=== PATIENT | female | born 2005 ===

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

== ENCOUNTER 2023-06-22 09:23 | Outpatient (AMB) | payer OTHER, SELFPAY ==
[2023-06-22 09:26] VITALS: BP 118/86; PULSE 84; O2SAT 97; BMI 24.1
--- NOTE | 2023-06-22 09:26 | A.OFFPC_ITS ---
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: No Accompanied by: Self / Same As Patient Allergies No Known Allergies Allergy (Verified 06/22/23 09:50) Medication List - Last Reconciled 06/22/23 by LOREN Norwood hydroxyzine HCl 25-50 mg (1 or 2 tabs) PO every 6 to 8 hours PRN; ibuprofen 600 mg PO Q8H PRN levonorgestrel-ethinyl estrad 0.1-20 mg-mcg (Sronyx) 1 tab PO DAILY Tobacco use date assessed: 06/22/23 Dental Screening Dental Screen Date: 06/22/23 Did you have a dental visit in the last 12 months?: Yes Did you have a dental problem in the last 6 months where you did not have access to dental care?: No Was dental information given to patient?: Patient has dentist HPI HPI Comments History of Present Illness Details 17-year-old female new patient past medi ranjana history significant for migraines. Patient presents today for physical exam. Recommended routine eye exam. Flu shot given in office today. Patient requesting form completed for school as she has anxiety related to test aching states that she gets very nervous feeling and starts to shake and it will give her migraine making it very difficult to focus on her test. Form completed [place] test anxiety to allow student more time while taking her exams. 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 History of irregular menses however patient reports since on control treatment patient's periods are regular. Patient states sexually active with long-term boyfriend of 4 years, uses condoms. [facility] Medical History (Updated 06/22/23 @ 10:03 by LOREN Norwood) Irregular menses Dysmenorrhea Surgical History No pertinent past surgical history Family History Mother Hypertension Paternal Grandfather AA (alcohol abuse) High cholesterol Father AA (alcohol abuse) Depression Anxiety Asthma Bipolar 1 disorder Sister Anxiety Depression Social History (Updated 06/22/23 @ 09:52 by LOREN Norwood) Household Members: Family Both parents involved: Yes Housing: House Alcohol intake: never Patient Tobacco Use Status: Never used Tobacco e-Cigarette/Vaping Use: Never Used service: No Current occupational status: unemployed Cognitive needs: No Hearing needs: No Vision needs: Yes Questionnaire PHQ-9 Over the last 2 weeks, how often have you been bothered by any of the following problems? 1. Little interest or pleasure in doing things: not at all 2. Feeling down, depressed, or hopeless: not at all 3. Trouble falling or staying asleep, or sleeping too much: several days 4. Feeling tired or having little energy: several days 5. Poor appetite or overeating: not at all 6. Feeling bad about yourself - or that you are a failure or have let yourself or your family down: not at all 7. Trouble concentrating on things, such as reading the newspaper or watching television: not at all 8. Moving or speaking so slowly that other people could have noticed. Or the opposite - being so fidgety or restless that you have been moving around a lot more than usual: not at all 9. Thoughts that you would be better off or of hurting yourself in some way: not at all Total score: 2 Depression Screening Interpretation: Negative Depression Screening Done: Yes 18378 - PHQ-9 Billing: Yes Source: Developed by Drs. Chemo Louis, Farrah Dickens, Germán Mendoza and colleagues, with an educational arley from [employer]. Thrive Questionnaire Date Thrive assessed: 06/22/23 I am a: Patient What is your living situation today?: I have a steady place to live Within the past 12 months, did the food you bought not last and you didn't have the money to get more?: Never true Within the past 12 months, did you worry whether your food would run out before you got money to buy more?: Never true Do you have trouble paying for medicines?: No Do you have trouble getting transportation to medical appointments?: No Do you have trouble paying your heating and electricity bill?: No Do you have trouble taking care of your child, family member or friend?: No Do you have trouble with day-to-day activities such as bathing, preparing meals, shopping, managing finances, etc.?: No Are you currently unemployed and looking for a job?: No Are you interested in more education?: No Please select the resources that you would like help with: None Currently or been in a relationship where the following occur: no concerns reported AUDIT C Alcohol Use Questionnaire (AUDIT-C) 1. How often do you have a drink containing alcohol?: Never 3. How often do you have six or more drinks on one occasion?: Never Total Score: 0 LASHAUN-7 AMB Questionnaire LASHAUN-7 Date LASHAUN - 7 assessed: 06/22/23 Feeling nervous, anxious, or on edge: 0 = Not at all Not being able to stop or control worryin = Not at all Worrying too much about different things: 0 = Not at all Trouble relaxin = Not at all Being so restless that it is hard to sit still: 0 = Not at all Becoming easily annoyed or irritable: 0 = Not at all Feeling afraid as if something awful might happen: 0 = Not at all Total LASHAUN-7 score (0-4 normal; 5-9 mild; 10-14 moderate; 15-21 severe): 0 Source: Developed by Drs. Chemo Louis, Farrah Dickens, Germán Mendoza and colleagues, with an educational arley from [employer]. LASHAUN-7 Assessment Billing LASHAUN-7 Assessment Tool: LASHAUN-7 Assessment 32332 Review of Systems Const Denies chills, Denies fatigue, Denies fever(s) and Denies poor appetite Eyes Denies no additional complaints ENT Reports Normal hearing present Card Denies chest pain, Denies syncope, Denies rapid heart rate and Denies dyspnea Resp Denies cough and Denies dyspnea GI Denies change in stool character, Denies constipation, Denies diarrhea, Denies nausea and Denies vomiting Denies urinary frequency, Denies dysuria and Denies urinary urgency Neuro Reports Normal hearing present, Denies confusion and Denies syncope Psych Denies confusion Endo Denies fatigue Physical exam (Primary Care) Vital Signs: Last Vital Signs Pulse 84 06/22/23 09:26 BP 118/86 06/22/23 09:26 Pulse Ox 97 06/22/23 09:26 Oxygen Delivery Method Room Air 06/22/23 09:26 BMI result Body Mass Index 24.1 Tobacco/Smoking Status: Tobacco use Status Tobacco use date assessed 06/22/23 06/22/23 09:37 Patient Tobacco Use Status Never used Tobacco 06/22/23 09:52 e-Cigarette/Vaping Use Never Used 06/22/23 09:52 PHQ-9: PHQ-9 Score PHQ-9: Total score 2 06/22/23 09:54 Depression Screening Interpretation: Negative Thrive Assessment: Date of Thrive Assessment Date Thrive assessed 06/22/23 06/22/23 09:37 Currently or been in a relationship where the following occur: no concerns reported Const General: No confusion Orientation/consciousness: No confusion HENMT Head: Yes normocephalic and Yes atraumatic Ears: external ears normal and TM's normal bilaterally General nose exam: Normal external nose present and Normal nasal mucous membranes and turbinates present Face and sinus: Yes normal facial exam and Yes sinuses nontender Mouth: moist mucous membranes Throat: Yes tonsils normal Eyes Conjunctivae: conjunctivae normal Sclerae: sclerae normal Pupils: Equal, round and reactive pupils present and Pupils normal by confrontation EOM: EOMs intact bilaterally Direct Ophthalmoscopy: normal light reflex Neck Neck: Yes no lymphadenopathy and Yes supple Thyroid: Thyroid normal Chest Chest palpation & inspection: normal inspection of the chest Resp Effort & Inspection: normal respiratory effort Auscultation: clear to auscultation bilaterally, no crackles, no rhonchi and no wheezes Cardio Rate: regular rate Rhythm: regular rhythm Peripheral pulses: radial pulses present and dorsalis pedis present GI Inspection: Yes normal to inspection Palpation (GI): Soft to palpation, nontender and No hepatosplenomegaly present Auscultation: normoactive bowel sounds Skin General skin exam: no rashes or lesions noted Neuro General: No confusion Cranial nerves: Yes Equal, round and reactive pupils present and Yes Normal hearing present Cognition (Neuro): normal cognition Gait exam (Neuro): Normal gait present Motor exam (neuro): 5/5 motor strength present throughout Deep tendon reflexes (DTR's): Right brachioradialis reflex intensity grade: 2+, Left brachioradialis reflex intensity grade: 2+, Right patellar reflex intensity grade: 2+ and Left patellar reflex intensity grade: 2+ Extrem General: No edema Office Procedures Flu Questionnaire Does the patient have a severe egg allergy?: No Does the patient have severe life threatening allergies?: No Does the patient have a fever or illness today?: No Has the patient ever had Guillain-Delmar Syndrome?: No Has the patient ever had any past reaction to a flu shot?: No Immunizations flu vacc [id number] 6mos up(PF) 60 mcg(15 mcgx4)/0.5 mL IM syringe Performing Provider: LOREN Norwood [facility] Administered by: Devorah Robbins CMA on 06/22/23 09:40 Dose Route Admin Location Dispensed Lot Number Expiration Date NDC Risk Lead 0.5 mL IM Left Deltoid 0.5 mL [id number] 01/14/24 33145-113-21 Funding Profiles VIS Given Date VIS Provided VIS Publication Date 06/22/23 Single Vaccine 21 Eligibility Eligibility Date Funding Source Not [facility] Eligible 06/22/23 Private Assessment and Plan Assessment & Plan (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 Copy to be scanned into patient's chart, original handed to patient in office today. (2) Migraines: Code(s): G43.909 - Migraine, unspecified, not intractable, without status migrainosus Plan: Continue on ibuprofen as needed. Please take medication with food to prevent GI upset. (3) Physical exam, annual: Code(s): Z00.00 - Encounter for general adult medical examination without abnormal findings Plan: Follow-up in 1 year for physical exam or sooner if needed. Plan Follow up in 1 year Orders: Orders Influenza [id number] Immunization Today Z23 - Encounter for immunization Coding Level of Care Code New Pt Prev Care 18-39yr(82804 Diagnoses Test anxiety F41.8 Migraines G43.909 Physical exam, annual Z00.00 Additional Codes LASHAUN-7 Assessment Billing - LASHAUN-7 Assessment Tool: LASHAUN-7 Assessment 21844 ([id number])
== END 2023-06-22 10:10 | disposition home or self-care (01) ==
PROVIDERS: Visit Provider Nurse Practitioner Family
DX: Z23 Encounter for immunization (principal); Z00.00 Encounter for general adult medical examination without abnormal findings; F41.8 Other specified anxiety disorders; G43.909 Migraine, unspecified, not intractable, without status migrainosus
CPT/HCPCS: 90471; 90686; 99385

== ENCOUNTER 2023-08-07 12:43 | Outpatient (AMB) | payer OTHER, SELFPAY ==
--- NOTE | 2023-08-07 12:56 | AM.OFFWIN_ITS ---
Intake Vital Signs 08/07/23 12:59 Height 5 ft 3.68 in Weight 139 lb BMI 24.1 BP 116/72 Blood Pressure Location Lt brachial Position Sitting Pulse 82 Pulse Source Pulse Oximeter Temp 98.2 F Temp Source Oral Pulse Oximetry (%) 98 Oxygen Delivery Method Room Air Intake Visit Reasons: EP ?UTI Intake Note: pt is here for c.o possible uti Patient Tobacco Use Status: Never used Tobacco Allergies No Known Allergies Allergy (Verified 08/07/23 14:19) Medication List - Last Reconciled 08/07/23 by Silas Sorto MD ibuprofen 600 mg PO Q8H PRN levonorgestrel-ethinyl estrad 0.1-20 mg-mcg (Sronyx) 1 tab PO DAILY Do you need a note to return to daycare/school/sports/work: Yes HPI EP ?UTI HPI Details Patient presents for a sick visit. Reports symptoms of increased frequency of urination, burning on urination and discomfort in the suprapubic area. Symptoms started in the past few days. No fevers or chills. No nausea or vomiting. [facility] Medical History (Updated 06/22/23 @ 10:03 by LOREN Norwood) Irregular menses Dysmenorrhea Surgical History No pertinent past surgical history Family History Mother Hypertension Paternal Grandfather AA (alcohol abuse) High cholesterol Father AA (alcohol abuse) Depression Anxiety Asthma Bipolar 1 disorder Sister Anxiety Depression Social History (Updated 06/22/23 @ 09:52 by LOREN Norwood) Household Members: Family Both parents involved: Yes Housing: House Alcohol intake: never Patient Tobacco Use Status: Never used Tobacco e-Cigarette/Vaping Use: Never Used service: No Current occupational status: unemployed Cognitive needs: No Hearing needs: No Vision needs: Yes Physical Exam Vital Signs: Last Vital Signs Temp 98.2 F 08/07/23 12:59 Pulse 82 08/07/23 12:59 BP 116/72 08/07/23 12:59 Pulse Ox 98 08/07/23 12:59 Oxygen Delivery Method Room Air 08/07/23 12:59 BMI result Body Mass Index 24.1 General: Yes bladder normal to palpation and Yes no CVA tenderness Bimanual exam- vagina & uterus: bladder normal to palpation Back/Spine/Pelvis Back: no CVA tenderness Results AMB Urinalysis, Automated UA Leukoctes 500 Terrence/uL Last Edit by Kermit Foss CMA on 08/07/23 13:0 7 UA Nitrite Positive Last Edit by Kermit Foss CMA on 08/07/23 13:07 UA Urobilinogen 8 mg/dL Last Edit by Kermit Foss CMA on 08/07/23 13:0 7 UA Protein 15 mg/dL Last Edit by Kermit Foss CMA on 08/07/23 13:07 UA pH 5.0 Last Edit by Kermit Foss CMA on 08/07/23 13:07 UA Blood 25 Candelario/uL Last Edit by Kermit Foss CMA on 08/07/23 13:07 UA Specific [place] 1.015 Last Edit by Kermit Foss CMA on 08/07/23 13:07 UA Ketone Positive Last Edit by Kermit Foss CMA on 08/07/23 13:07 UA Bilirubin 4 mg/dL Last Edit by Kermit Foss CMA on 08/07/23 13:07 UA Glucose 250 mg/dL Last Edit by Kermit Foss CMA on 08/07/23 13:07 AMB Random Glucose (hemocue) AMB Random Glucose (hemocue) 112 mg/dL Last Edit by Kermit Foss CMA o n 08/07/23 13:55 Results Reviewed Results Reviewed: Laboratory Last Values Random Glu (Clinic) 112 mg/dL 08/07/23 13:50 Urine pH (Auto) 5.0 08/07/23 13:06 Specific [place] (Auto) 1.015 08/07/23 13:06 Urine Protein (Auto) 15 mg/dL 08/07/23 13:06 Glucose (UA)(Auto) 250 mg/dL 08/07/23 13:06 Urine Ketones (Auto) Positive 08/07/23 13:06 Urine Blood (Auto) 25 Candelario/uL 08/07/23 13:06 Urine Nitrite (Auto) Positive 08/07/23 13:06 Urine Bilirubin (Auto) 4 mg/dL 08/07/23 13:06 Urine Urobilinogen (Auto) 8 mg/dL 08/07/23 13:06 Leukocyte Esterase (Auto) 500 Terrence/uL 08/07/23 13:06 Assessment & Plan Assessment & Plan (1) Urinary tract infection: Code(s): N39.0 - Urinary tract infection, site not specified Plan: Urinalysis was positive for infection and sugar. Random blood sugars done in the office was 112. Take antibiotics and Pyridium as directed. Increase fluid intake. If symptoms of burning persist, new onset of fever or lower back pain, to follow-up at the clinic. Orders: Orders AMB Random Glucose (hemocue) Today Z13.9 - Encounter for screening, unspecified AMB Urinalysis Automated Today Z13.9 - Encounter for screening, unspecified Coding Level of Care Code Est Pt Level 3 (85441) Diagnoses Urinary tract infection N39.0
[2023-08-07 12:59] VITALS: BP 116/72; PULSE 82; TEMP 36.8; O2SAT 98; BMI 24.1
== END 2023-08-07 14:40 | disposition home or self-care (01) ==
PROVIDERS: Visit Provider Internal Medicine
DX: N39.0 Urinary tract infection, site not specified (principal); R35.0 Frequency of micturition
CPT/HCPCS: 81003; 82948; 99213

== ENCOUNTER 2023-09-15 10:02 | Outpatient (REF) | payer OTHER, SELFPAY ==
[2023-09-15 11:31] LABS: HBS Num1 323.98 mIU/mL (0-7.99); HBsAGNum1 0.34 S/CO (0.00-0.99); Hepatitis B Core Antibody Nonreactive (Nonreactive); Hepatitis B Surface Antigen Negative (Negative); ~Hepatitis B Surface Antibody REACTIVE (Nonreactive)
== END 2023-09-15 10:03 | disposition home or self-care (01) ==
LOC: HO.LAB 10:02
PROVIDERS: PCP Internal Medicine; Visit Provider Internal Medicine
DX: Z01.84 Encounter for antibody response examination (principal)
CPT/HCPCS: 36415; 86704; 86706; 87340

== ENCOUNTER 2024-02-01 10:33 | Outpatient (REF) | payer OTHER, SELFPAY ==
[2024-02-04 02:48] LABS: TS Negative Control Passed; TS Panel A 0; TS Panel B 0; TS Positive Control Passed; TSpotTB Negative (Negative)
== END 2024-02-01 10:34 | disposition home or self-care (01) ==
LOC: HO.LAB 10:33
PROVIDERS: PCP Internal Medicine; Visit Provider Internal Medicine
DX: Z23 Encounter for immunization (principal)
CPT/HCPCS: 36415; 86481

== ENCOUNTER 2024-06-24 08:52 | Outpatient (AMB) | payer OTHER, SELFPAY ==
[2024-06-24 09:05] VITALS: BP 122/76; BMI 26.9
--- NOTE | 2024-06-24 09:05 | MHC.PC.OV ---
Vital Signs 06/24/24 09:05 Height 5 ft 3.68 in Weight 155 lb BMI 26.9 BP 122/76 Blood Pressure Location Lt brachial Position Sitting Intake Visit Reasons: PE- NEEDS PHQ9 Intake Note: Patient here for a physical exam Flow Floor Attendant Required: No Accompanied by: Self / Same As Patient Allergies No Known Allergies Allergy (Verified 06/24/24 09:30) Medication List - Last Reconciled 06/24/24 by Karen Mcneil MD levonorgestrel-ethinyl estrad 0.1-20 mg-mcg (Vienva) 1 tab PO DAILY naproxen 500 mg PO BID PRN 30 days Tobacco use date assessed: 06/24/24 Dental Screening Dental Screen Date: 06/24/24 Did you have a dental visit in the last 12 months?: No Did you have a dental problem in the last 6 months where you did not have access to dental care?: No Was dental information given to patient?: Patient has dentist HPI HPI Comments History of Present Illness Details The patient is a 18-year-old female presenting for an annual physical examination. 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 No specific prior medical interventions for depression have been mentioned. The patient is currently managing depression without medication. The patient also experiences anxiety, with reported episodes of shortness of breath, which she attributes to stress and fatigue. She considers consulting her physician about the anxiety and its potential impact on her health. No associated chest pain or wheezing has been reported. There is no history of surgeries. The patient denies any history of smoking or alcohol consumption. Her family history includes essential hypertension in her mother and bipolar disorder, asthma, anxiety, and depression in her father. The patient has not undergone any recent blood work, and there is a plan to perform a baseline evaluation to assess cholesterol, glucose, kidney, and liver function. - Annual physical examination conducted. - Pap smear deferred as patient is under the age of 21. - Influenza vaccine administered on March 19 in the community. - Routine vaccinations up to date. COUNT INCLUDES THE [facility] Medical History Irregular menses Dysmenorrhea Surgical History No pertinent past surgical history Family History Mother Hypertension Paternal Grandfather AA (alcohol abuse) High cholesterol Father AA (alcohol abuse) Depression Anxiety Asthma Bipolar 1 disorder Sister Anxiety Depression Social History Household Members: Family Both parents involved: Yes Housing: House Alcohol intake: never Patient Tobacco Use Status: Never used Tobacco e-Cigarette/Vaping Use: Never Used Second Hand Smoke Exposure: No service: No Current occupational status: unemployed Cognitive needs: No Hearing needs: No Vision needs: Yes Questionnaire PHQ-9 Over the last 2 weeks, how often have you been bothered by any of the following problems? 1. Little interest or pleasure in doing things: several days 2. Feeling down, depressed, or hopeless: several days 3. Trouble falling or staying asleep, or sleeping too much: several days 4. Feeling tired or having little energy: several days 5. Poor appetite or overeating: several days 6. Feeling bad about yourself - or that you are a failure or have let yourself or your family down: not at all 7. Trouble concentrating on things, such as reading the newspaper or watching television: not at all 8. Moving or speaking so slowly that other people could have noticed. Or the opposite - being so fidgety or restless that you have been moving around a lot more than usual: not at all 9. Thoughts that you would be better off or of hurting yourself in some way: not at all Total score: 5 Depression Screening Interpretation: Positive Depression Screening Follow-up: Existing condition and Follow-up Visit Requested Depression Screening Done: Yes 17430 - PHQ-9 Billing: Yes Source: Developed by Drs. Chemo Louis, Farrah Dickens, Germán Mendoza and colleagues, with an educational arley from [employer]. Thrive Questionnaire Date Thrive assessed: 06/18/24 I am a: Patient What is your living situation today?: I have a steady place to live Within the past 12 months, did the food you bought not last and you didn't have the money to get more?: Sometimes True Within the past 12 months, did you worry whether your food would run out before you got money to buy more?: Sometimes True Do you have trouble paying for medicines?: No Do you have trouble getting transportation to medical appointments?: No Do you have trouble paying your heating and electricity bill?: No Do you have trouble taking care of your child, family member or friend?: No Do you have trouble with day-to-day activities such as bathing, preparing meals, shopping, managing finances, etc.?: No Are you currently unemployed and looking for a job?: No Are you interested in more education?: I choose not to answer this question Please select the resources that you would like help with: Food Currently or been in a relationship where the following occur: No concerns reported THRIVE Score: 2 AUDIT C Alcohol Use Questionnaire (AUDIT-C) 1. How often do you have a drink containing alcohol?: Never Total Score: 0 Score Reviewed/Action Taken: No LASHAUN-7 AMB Questionnaire LASHAUN-7 Date LASHAUN - 7 assessed: 06/24/24 Feeling nervous, anxious, or on edge: 2 = More than half the days Not being able to stop or control worryin = Several days Worrying too much about different things: 1 = Several days Trouble relaxin = Several days Being so restless that it is hard to sit still: 1 = Several days Becoming easily annoyed or irritable: 1 = Several days Feeling afraid as if something awful might happen: 0 = Not at all Total LASHAUN-7 score (0-4 normal; 5-9 mild; 10-14 moderate; 15-21 severe): 7 Source: Developed by Drs. Chemo Louis, Farrah Dickens, Germán Mendoza and colleagues, with an educational arley from [employer]. LASHAUN-7 Assessment Billing LASHAUN-7 Assessment Tool: LASHAUN-7 Assessment 44166 Review of Systems Const All systems reviewed & are unremarkable except as noted in HPI and below Card Denies chest pain at rest, Denies chest pain with activity, Denies edema, Denies irregular heart rhythm, Denies claudication, Denies dyspnea, Denies dyspnea on exertion, Denies orthopnea, Denies paroxysmal nocturnal dyspnea and Denies slow heart rate Resp Denies cough, Denies dyspnea and Denies dyspnea on exertion GI Denies abdominal pain, Denies change in bowel habits, Denies excessive flatus, Denies nausea and Denies vomiting Neuro Denies lack of coordination Physical exam (Primary Care) Vital Signs: Last Vital Signs BP 122/76 06/24/24 09:05 BMI result Body Mass Index 26.9 Tobacco/Smoking Status: Tobacco use Status Tobacco use date assessed 06/24/24 06/24/24 09:09 Patient Tobacco Use Status Never used Tobacco 06/24/24 09:09 e-Cigarette/Vaping Use Never Used 06/24/24 09:09 PHQ-9: PHQ-9 Score PHQ-9: Total score 5 06/24/24 09:32 Depression Screening Interpretation: Positive Depression Screening Follow-up: Existing condition and Follow-up Visit Requested Thrive Assessment: Date of Thrive Assessment Date Thrive assessed 06/18/24 06/24/24 09:09 Currently or been in a relationship where the following occur: No concerns reported HENMT Head: Yes normal to inspection, Yes normocephalic and Yes atraumatic Ears: external ears normal Eyes General: appearance normal, both eyes and all related structures Eyelids: Yes eyelids normal Conjunctivae: conjunctivae normal Neck Neck: Yes normal visual inspection and Yes supple Resp Effort & Inspection: normal respiratory effort Auscultation: clear to auscultation bilaterally Cardio Jugular venous distension: no JVD Rate: regular rate Rhythm: regular rhythm Heart sounds: S1 normal heart sound present and S2 normal heart sound present GI Inspection: Yes normal to inspection Palpation (GI): Soft to palpation and nontender Auscultation: normal bowel sounds Skin General skin exam: no rashes or lesions noted Neuro General: no focal motor deficits Extrem General: Yes full ROM Psych Appearance: grossly normal Coding Level of Care Code Est Pt Level 3 (76156) Est Pt Prev Care 18-39y(98258) Diagnoses Physical exam Z00.00 Fatigue R53.83 Mild major depression F32.0 Additional Codes LASHAUN-7 Assessment Billing - LASHAUN-7 Assessment Tool: LASHAUN-7 Assessment 22112 ([id number]) PHQ-9 - 03753 - PHQ-9 Billing: Yes ([id number]) Time Spent (min) 32 Assessment & Plan Assessment & Plan (1) Physical exam: Code(s): Z00.00 - Encounter for general adult medical examination without abnormal findings Category: Medical (2) Fatigue: Code(s): R53.83 - Other fatigue Category: Medical (3) Mild major depression: Code(s): F32.0 - Major depressive disorder, single episode, mild Category: Medical Plan 1. Anxiety: - Encourage patient to discuss anxiety and associated symptoms further if they persist. 2. Depressive Disorder, Mild: - No medication currently planned; support and counseling advised if symptoms worsen. 3. Health Maintenance: - Follow up on blood work results once completed. Patient was informed and verbally consented to the use of an ambient scribe for clinic note documentation during this visit. I discussed with the patient the importance of monitoring her depressive symptoms, especially in light of stress from nursing school and recent bereavement. I emphasized that she should reach out if symptoms persist or worsen. We talked about the potential impact of anxiety and how recent events might be contributing to her symptoms. I recommended blood work to establish a baseline for cholesterol, glucose, and kidney and liver function. I have ensured the patient's understanding of the deferred Pap smear until age 21. We also confirmed her routine vaccinations are current. Orders: Orders Vitamin D 25-OH Total Today R53.83 - Other fatigue Vitamin B12 and Folate Today R53.83 - Other fatigue Thyroid Stimulating Hormone Today R53.83 - Other fatigue Comprehensive [place]. Panel Fast Today R53.83 - Other fatigue Lipid Panel Today Z00.00 - Encounter for general adult medical examination without abnormal findings Complete Blood Count Auto Diff Today R53.83 - Other fatigue Patient Instructions: - Complete prescribed fasting blood work as scheduled. - Observe any changes in anxiety or depressive symptoms, and report if symptoms persist or worsen. - Follow up regarding any stress management or supportive counseling needs. - Await results of laboratory work and adhere to future follow-up recommendations.
== END 2024-06-24 09:40 | disposition home or self-care (01) ==
PROVIDERS: PCP Internal Medicine; Visit Provider Internal Medicine
DX: Z00.00 Encounter for general adult medical examination without abnormal findings (principal); R53.83 Other fatigue; F32.0 Major depressive disorder, single episode, mild

== ENCOUNTER → 2024-06-24 08:52 | Outpatient (BNVA) | payer OTHER, SELFPAY | PROVIDERS: PCP Internal Medicine; Visit Provider Internal Medicine | DX: Z00.00 Encounter for general adult medical examination without abnormal findings (principal); R53.83 Other fatigue; F32.0 Major depressive disorder, single episode, mild | CPT/HCPCS: 96127; 99395 ==

== ENCOUNTER 2024-12-31 09:08 | Outpatient (REF) | payer OTHER, SELFPAY ==
[2024-12-31 09:21] LABS: MANUAL DIFF FLAG NO
[2024-12-31 09:30] LABS: Basophils Percent Auto 0.5 % (0-2); Eosinophils Absolute Auto 0.2 X10*3/uL (0.0-0.4); Eosinophils Percent Auto 2.1 % (0-4); Hemoglobin 14.7 g/dl (12.0-16.0); Imm Gran Abs Auto 0.03 X10*3/uL (0.00-0.03); Imm Gran Pct Auto 0.4 % (0.0-0.4); Lymphocytes Absolute Auto 3.3 X10*3/uL (1.2-4.9); Lymphocytes Percent Auto 43.5 % (20-40); Mean Corpuscular HGB Conc 33.4 g/dl (31.0-35.0); Mean Corpuscular Hemoglobin 29.9 pg (27.0-33.0); Mean Corpuscular Volume 89.4 fL (80.0-98.0); Mean Platelet Volume 10.4 fL (9.4-12.3); Monocytes Absolute Auto 0.3 X10*3/uL (0.1-1.2); Monocytes Percent Auto 4.3 % (2-11); Neutrophils Absolute Auto 3.8 x10*3/uL (2.0-8.3); Neutrophils Percent Auto 49.2 % (45-73); Platelet Count 270 X10*3/uL (160-400); Red Blood Count 4.92 X10*6/uL (4.20-5.50); Red Cell Distribution Width 12.6 % (11.0-16.0); White Blood Count 7.7 X10*3/uL (4.8-10.8)
[2024-12-31 10:05] LABS: Alanine Aminotransferase 33 U/L (0-31); Albumin Level 4.3 g/dL (3.5-5.0); Alkaline Phosphatase 58 U/L (39-117); Anion Gap 10 (12-20); Aspartate Amino Transferase 80 U/L (5-31); Bilirubin Total 0.5 mg/dL (0.0-1.0); Blood Urea Nitrogen 7 mg/dL (9-16); Calcium 9.4 mg/dL (8.4-10.2); Carbon Dioxide 24 mmol/L (22-29); Chloride 109 mmol/L (96-108); Cholesterol 205 mg/dL (<200); Estimated Glomerular Filt Rate > 60; Glucose Fasting 90 mg/dL (60-99); HDL Cholesterol 48 mg/dL (>40); LDL Cholesterol Calculated 136 mg/dL (<100); Potassium 3.9 mmol/L (3.3-5.1); Sodium 139 mmol/L (135-145); Total Protein 7.4 g/dL (6.5-8.0); Triglycerides 105 mg/dL (<150)
[2024-12-31 10:28] LABS: Folate 11.8 ng/mL (> or = 4.0); Vitamin B12 256 pg/mL (200-900)
[2024-12-31 10:31] LABS: Thyroid Stimulating Hormone 1.69 uIU/mL (0.32-4.0); Vitamin D 25-OH Total 32.8 ng/mL (>30)
== END 2024-12-31 09:09 | disposition home or self-care (01) ==
LOC: HO.LAB 09:08
PROVIDERS: PCP Internal Medicine; Visit Provider Internal Medicine
DX: Z00.00 Encounter for general adult medical examination without abnormal findings (principal); R53.83 Other fatigue
CPT/HCPCS: 36415; 80053; 80061; 82306; 82607; 82746; 84443; 85025

== ENCOUNTER 2025-02-06 09:02 | Outpatient (REF) | payer OTHER, SELFPAY ==
[2025-02-08 22:09] LABS: TS Negative Control Passed; TS Panel A 0; TS Panel B 0; TS Positive Control Passed; TSpotTB Negative (Negative)
== END 2025-02-06 09:03 | disposition home or self-care (01) ==
LOC: HO.LAB 09:02
PROVIDERS: PCP Internal Medicine; Visit Provider Internal Medicine
DX: Z11.1 Encounter for screening for respiratory tuberculosis (principal)
CPT/HCPCS: 36415; 86481

== ENCOUNTER 2025-02-18 11:22 | Outpatient (REF) | payer OTHER, SELFPAY ==
--- NOTE | ~2025-02-18 | US_ITS ---
EXAMINATION: US ABDOMEN LIMITED WITH LIVER ELASTOGRAPHY HISTORY: R74.01 - Elevation of levels of liver transaminase levels TECHNIQUE: Real-time grayscale ultrasound imaging of the right upper quadrant was performed and images were reviewed. COMPARISON: There are no prior studies available for comparison. FINDINGS: Liver: The right lobe of the liver measures 12.8 cm in size. The left lobe of the liver measures 7.4 cm in size. The liver demonstrates normal homogeneous echotexture. No focal mass or intrahepatic biliary ductal dilatation is identified. There is normal hepatopedal flow in the portal vein. Ultrasound elastography of the liver was performed with 10 separate measurements of the liver parenchyma with the patient in the supine position. Measurements were obtained approximately 2 cm below Eileen's capsule and perpendicular to the capsule. The median shear wave velocity is 1.04 m/s. The interquartile range/median (IQR/median) is 0.15. Gallbladder and biliary tree: The gallbladder is unremarkable, without evidence of calculi, wall thickening, or pericholecystic fluid. There is no sonographic Carrasco sign. The common bile duct is normal in caliber measuring 3 mm. Right Kidney: The right kidney measures 10.5 cm in length. The right kidney is unremarkable, without evidence of masses, hydronephrosis, or calculi. Pancreas: The pancreatic head, neck, and body are unremarkable. The pancreatic tail is obscured by bowel gas. Abdominal aorta and inferior vena cava: The visualized portions of the abdominal aorta and inferior vena cava are normal in caliber. There is no free fluid in the right upper quadrant. US/US abdomen zhang w elastography IMPRESSION: Unremarkable right upper quadrant ultrasound. The median shear wave velocity in the liver is 1.04 m/s, corresponding to a median liver stiffness of 3.2 kPa. The IQR/median value is 0.15. This is indicative of a quality data set. Findings are indicative of a normal elastography value with a low likelihood of severe fibrosis or cirrhosis. REFERENCE: Society of Radiologists in Ultrasound Liver Stiffness Thresholds (2019): LIVER STIFFNESS THRESHOLDS: *Shear wave velocity less than 1.3 m/s (Liver Stiffness equal or less than 5 kPa): High probability of being normal. *Shear wave velocity less than 1.7 m/s (Liver Stiffness less than 9 kPa): In the absence of other known clinical signs, rules out compensated advanced chronic liver disease. *Shear wave velocity between 1.7-2.1 m/s (Liver Stiffness 9-13 kPa): Suggestive of compensated advanced chronic liver disease but need further test for confirmation. *Shear wave velocity between 2.1-2.4 m/s (Liver Stiffness 13-17 kPa): Rules in compensated advanced chronic liver disease. *Shear wave velocity greater than 2.4 m/s (Liver Stiffness over 17 kPa): Suggestive of clinically significant portal hypertension. QUALITY OF DATA SET: *IQR/Median value equal or less than 0.30 implies a quality data set. *IQR/Median value over 0.30 implies a poor quality data set. SIGNIFICANT CHANGE FROM PRIOR EXAM: Significant change if liver stiffness measurement is 10% or greater from prior exam. OTHER CONSIDERATIONS: The stage of liver fibrosis may be overestimated in the setting of acute hepatitis, liver inflammation, elevated liver function tests, hepatic vascular congestion, obstructive cholestasis, non-fasting state, and infiltrative diseases such as amyloidosis and lymphoma. In some patients with NAFLD, the liver stiffness thresholds for compensated advanced chronic liver disease may be lower. In causes other than viral hepatitis and NAFLD, liver stiffness thresholds are not well established. Electronically signed by: Chemo Huitron MD 02/18/2025 12:11 PM EDT
== END 2025-02-18 11:23 | disposition home or self-care (01) ==
LOC: HO.US 11:22
PROVIDERS: PCP Internal Medicine; Visit Provider Internal Medicine
DX: R74.01 Elevation of levels of liver transaminase levels (principal)
CPT/HCPCS: 76705; 76981

== ENCOUNTER → 2025-02-18 11:23 | Outpatient (BNV) | payer OTHER, SELFPAY | PROVIDERS: PCP Internal Medicine; Visit Provider Radiology Diagnostic Radiology | DX: R74.01 Elevation of levels of liver transaminase levels (principal) | CPT/HCPCS: 76705 ==

== ENCOUNTER 2025-06-26 08:51 | Outpatient (AMB) | payer OTHER, SELFPAY ==
[2025-06-26 08:58] VITALS: BP 124/68; BMI 27.6
--- NOTE | 2025-06-26 08:58 | MHC.PC.OV ---
Vital Signs 06/26/25 08:58 Height 5 ft 3.68 in Weight 159 lb BMI 27.6 BP 124/68 Blood Pressure Location Lt brachial Position Sitting Intake Visit Reasons: Annual Exam Intake Note: To change control to a progestrone only per eye doctors recommendation. Field Radio Technician Required: No Accompanied by: Self / Same As Patient Allergies No Known Allergies Allergy (Verified 06/26/25 09:15) Medication List - Last Reconciled 06/26/25 by Karen Mcneil MD levonorgestrel-ethinyl estrad 0.1-20 mg-mcg (Vienva) 1 tab PO DAILY naproxen 500 mg PO BID PRN 30 days Tobacco use date assessed: 06/26/25 Dental Screening Dental Screen Date: 06/26/25 Did you have a dental visit in the last 12 months?: No Did you have a dental problem in the last 6 months where you did not have access to dental care?: No Was dental information given to patient?: Patient has dentist HPI HPI Comments History of Present Illness Details The patient is a 19 year old female presenting for a physical examination. She has no known medication allergies. She has no surgical history. The patient's mother has high blood pressure and asthma, and her father has a history of bipolar disorder, depression, anxiety, and asthma. 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 She is currently taking a control pill, which was changed from Sronyx to Vimva after transitioning from her flue dust laborer. She mentions that her eye doctor advised changing to a progesterone-only contraceptive due to a family history of breast cancer. Past laboratory work revealed slightly elevated cholesterol, which did not require medication. A subsequent liver ultrasound was normal. The patient has never had a Pap smear and is aware that screening begins at age 21. The patient received the influenza and Tdap vaccines this year. [facility] Medical History (Updated 06/26/25 @ 09:22 by Karen Mcneil MD) Irregular menses Dysmenorrhea Surgical History No pertinent past surgical history Family History (Updated 06/26/25 @ 09:20 by Karen Mcneil MD) Mother Hypertension Asthma Paternal Grandfather AA (alcohol abuse) High cholesterol Father AA (alcohol abuse) Depression Anxiety Asthma Bipolar 1 disorder Sister Anxiety Depression Social History Household Members: Family Both parents involved: Yes Housing: House Alcohol intake: never Patient Tobacco Use Status: Never used Tobacco Tobacco use type: Cigarette e-Cigarette/Vaping Use: Never Used Second Hand Smoke Exposure: No service: No Current occupational status: unemployed Cognitive needs: No Hearing needs: No Vision needs: Yes Questionnaire PHQ-9 Over the last 2 weeks, how often have you been bothered by any of the following problems? 1. Little interest or pleasure in doing things: several days 2. Feeling down, depressed, or hopeless: not at all 3. Trouble falling or staying asleep, or sleeping too much: several days 4. Feeling tired or having little energy: several days 5. Poor appetite or overeating: several days 6. Feeling bad about yourself - or that you are a failure or have let yourself or your family down: not at all 7. Trouble concentrating on things, such as reading the newspaper or watching television: not at all 8. Moving or speaking so slowly that other people could have noticed. Or the opposite - being so fidgety or restless that you have been moving around a lot more than usual: not at all 9. Thoughts that you would be better off or of hurting yourself in some way: not at all Total score: 4 Depression Screening Interpretation: Positive Depression Screening Follow-up: Existing condition and Follow-up Visit Requested Depression Screening Done: Yes 70765 - PHQ-9 Billing: Yes Source: Developed by Drs. Chemo Louis, Farrah Dickens, Germán Mendoza and colleagues, with an educational arley from [employer]. Thrive Questionnaire Date Thrive assessed: 06/26/25 I am a: Patient What is your living situation today?: I have a steady place to live Within the past 12 months, did the food you bought not last and you didn't have the money to get more?: Never true Within the past 12 months, did you worry whether your food would run out before you got money to buy more?: Sometimes True Do you have trouble paying for medicines?: No Do you have trouble getting transportation to medical appointments?: No Do you have trouble paying your heating and electricity bill?: No Do you have trouble taking care of your child, family member or friend?: No Do you have trouble with day-to-day activities such as bathing, preparing meals, shopping, managing finances, etc.?: No Are you currently unemployed and looking for a job?: No Are you interested in more education?: Yes Please select the resources that you would like help with: Food Currently or been in a relationship where the following occur: No concerns reported THRIVE Score: 1 AUDIT C Alcohol Use Questionnaire (AUDIT-C) 1. How often do you have a drink containing alcohol?: Never 3. How often do you have six or more drinks on one occasion?: Never Total Score: 0 Score Reviewed/Action Taken: No LASHAUN-7 AMB Questionnaire LASHAUN-7 Date LASHAUN - 7 assessed: 06/26/25 Feeling nervous, anxious, or on edge: 2 = More than half the days Not being able to stop or control worryin = Several days Worrying too much about different things: 1 = Several days Trouble relaxin = Several days Being so restless that it is hard to sit still: 1 = Several days Becoming easily annoyed or irritable: 1 = Several days Feeling afraid as if something awful might happen: 1 = Several days Total LASHAUN-7 score (0-4 normal; 5-9 mild; 10-14 moderate; 15-21 severe): 8 Source: Developed by Drs. Chemo Louis, Farrah Dickens, Germán Mendoza and colleagues, with an educational arley from [employer]. LASHAUN-7 Assessment Billing LASHAUN-7 Assessment Tool: LASHAUN-7 Assessment 88787 Review of Systems Const All systems reviewed & are unremarkable except as noted in HPI and below Card Denies chest pain at rest, Denies chest pain with activity, Denies edema, Denies irregular heart rhythm, Denies claudication, Denies dyspnea, Denies dyspnea on exertion, Denies orthopnea, Denies paroxysmal nocturnal dyspnea and Denies slow heart rate Resp Denies cough, Denies dyspnea and Denies dyspnea on exertion GI Denies abdominal pain, Denies change in bowel habits, Denies excessive flatus, Denies nausea and Denies vomiting Neuro Denies lack of coordination Physical exam (Primary Care) Vital Signs: Last Vital Signs BP 124/68 06/26/25 08:58 BMI result Body Mass Index 27.6 Tobacco/Smoking Status: Tobacco use Status Tobacco use date assessed 06/26/25 06/26/25 09:05 Patient Tobacco Use Status Never used Tobacco 06/26/25 09:05 Tobacco use type Cigarette 06/26/25 09:05 e-Cigarette/Vaping Use Never Used 06/26/25 09:05 PHQ-9: PHQ-9 Score PHQ-9: Total score 4 06/26/25 09:05 Depression Screening Interpretation: Positive Depression Screening Follow-up: Existing condition and Follow-up Visit Requested Thrive Assessment: Date of Thrive Assessment Date Thrive assessed 06/26/25 06/26/25 09:05 Currently or been in a relationship where the following occur: No concerns reported HENMT Head: Yes normal to inspection, Yes normocephalic and Yes atraumatic Ears: external ears normal Eyes General: appearance normal, both eyes and all related structures Eyelids: Yes eyelids normal Conjunctivae: conjunctivae normal Neck Neck: Yes normal visual inspection and Yes supple Resp Effort & Inspection: normal respiratory effort Auscultation: clear to auscultation bilaterally Cardio Jugular venous distension: no JVD Rate: regular rate Rhythm: regular rhythm Heart sounds: S1 normal heart sound present and S2 normal heart sound present GI Inspection: Yes normal to inspection Palpation (GI): Soft to palpation and nontender Auscultation: normal bowel sounds Skin General skin exam: no rashes or lesions noted Neuro General: no focal motor deficits Extrem General: Yes full ROM Psych Appearance: grossly normal Coding Level of Care Code Est Pt Prev Care 18-39y(80898) Diagnoses Physical exam Z00.00 Mild major depression F32.0 Additional Codes PHQ-9 - 75681 - PHQ-9 Billing: Yes ([id number]) LASHAUN-7 Assessment Billing - LASHAUN-7 Assessment Tool: LASHAUN-7 Assessment [id number] ([id number]) Time Spent (min) 30 Assessment & Plan Assessment & Plan (1) Physical exam: Code(s): Z00.00 - Encounter for general adult medical examination without abnormal findings Category: Medical (2) Mild major depression: Code(s): F32.0 - Major depressive disorder, single episode, mild Category: Medical Plan Plan 1. Annual Physical Examination The patient presented for a routine physical exam. 2. Depression And Anxiety The patient reports mild symptoms of depression and anxiety, which she associates with academic stress from nursing school. No specific management plan was discussed at this time. 3. Hypercholesterolemia Previous lab work showed elevated cholesterol. Repeat blood work will be ordered to reassess lipid levels, which requires an 8-hour fast and should be completed within three months. 4. Contraception Management The patient is currently using Vimva for contraception. The patient's eye doctor recommended a switch to a progesterone-only pill due to a family history of breast cancer. A referral to an POINTING MACHINE OPERATOR for ongoing contraceptive management is recommended. A refill for her current medication will be provided to bridge care until she is seen by the specialist. Orders: Orders Lipid Panel Today E78.5 - Hyperlipidemia, unspecified, Z00.00 - Encounter for general adult medical examination without abnormal findings Comprehensive [place]. Panel Fast Today Z00.00 - Encounter for general adult medical examination without abnormal findings Referrals POINTING MACHINE OPERATOR Referral Z12.4 - Encounter for screening for malignant neoplasm of cervix Medications: Refilled levonorgestrel-ethinyl estrad 0.1-20 mg-mcg (Vienva) 1 tab PO DAILY 84 tabs 0RF Z00.00 - Encounter for general adult medical examination without abnormal findings
== END 2025-06-26 09:27 | disposition home or self-care (01) ==
LOC: HO.HMCH 08:52
PROVIDERS: PCP Internal Medicine; Visit Provider Internal Medicine
DX: Z00.00 Encounter for general adult medical examination without abnormal findings (principal); F32.0 Major depressive disorder, single episode, mild

== ENCOUNTER → 2025-06-26 08:51 | Outpatient (BNVA) | payer OTHER, SELFPAY | PROVIDERS: PCP Internal Medicine; Visit Provider Internal Medicine | DX: Z00.00 Encounter for general adult medical examination without abnormal findings (principal); F32.0 Major depressive disorder, single episode, mild; E78.5 Hyperlipidemia, unspecified; F41.9 Anxiety disorder, unspecified; Z13.31 Encounter for screening for depression; Z13.39 Encounter for screening examination for other mental health and behavioral disorders | CPT/HCPCS: 96127; 99395 ==